=== PATIENT | female | born 1960 | race Caucasian/White ===

== ENCOUNTER 2020-05-17 17:05 | Emergency (ER) | payer OTHER, SELFPAY ==
[2020-05-17 17:20] VITALS: O2SAT 96
[2020-05-17 17:33] VITALS: BP 185/70; PULSE 74; RESP 22; TEMP 37.3; O2SAT 99
[2020-05-17] MEDS: IPRATROPIUM BR 0.02% INH SOLN 0.5 MG/2.5 ML VIAL INHALATION (17:35)
[2020-05-17] MEDS: ALBUTEROL SULFATE NEB 2.5 MG/3 ML INH INHALATION (17:36)
--- NOTE | 2020-05-17 17:41 | ED.GENADULT ---
HPI - General Adult General Chief complaint: Upper Respiratory Infection Stated complaint: Difficulty breathing Time Seen by Provider: 05/17/20 17:26 Source: patient and RN notes reviewed Mode of arrival: ambulatory Limitations: no limitations History of Present Illness HPI narrative: Patient presents today complaining of shortness of breath. 1.5 hours prior to arrival, she was using her shop back at home to vacuum up some dust and dirt. She did not realize the filter was not on her Shop Vac, when she inhaled a bunch of dust. States she is having a spasm in her esophagus, causing her shortness of breath. Something similar happened to her 1 year ago when she was removing some tile from a bathroom, she was subsequently seen at [facility] and given an albuterol nebulizer treatment, helping care her symptoms. She is requesting a treatment today. Prior to the symptoms starting after inhaling the dust, she states she did not have any symptoms at home. States that she was monitoring her pulse ox at home and states it was in the 80s. Upon arrival, after walking in from her car, her pulse ox was in the 80s as well. After sitting and taking some deep breaths, it has risen to 97% on room air. She denies history of COPD or asthma. MD complaint: shortness of breath. Related Data Home Medications Medication Instructions Recorded Confirmed estradiol 0.5 mg PO DAILY 05/17/20 05/17/20 gabapentin 300 mg PO BID 05/17/20 05/17/20 gabapentin 600 mg PO HS 05/17/20 05/17/20 glimepiride 4 mg PO DAILY 05/17/20 05/17/20 ibuprofen 800 mg PO TID 05/17/20 05/17/20 lisinopril 20 mg PO DAILY 05/17/20 05/17/20 metformin 1,000 mg PO BID 05/17/20 05/17/20 Allergies Allergy/AdvReac Type Severity Reaction Status Date / Time ampicillin Allergy Rash Verified 05/17/20 18:02 Review of Systems Review of Systems: Narrative: CONSTITUTIONAL: Denies body aches, fever, chills, or sweats. EYES: Denies visual changes, redness, or discharge. ENT: Denies rhinorrhea, congestion, sore throat, or otalgia. CARDIOVASCULAR: Denies chest pain, palpitations, or edema. RESPIRATORY: Denies cough. +shortness of breath GASTROINTESTINAL: Denies abdominal pain, nausea, vomiting, or diarrhea. GENITOURINARY: Denies dysuria or hematuria. SKIN: Denies rash, itching, or wounds. MUSCULOSKELETAL: Denies back pain, joint pain, or myalgia. NEUROLOGIC: Denies headache, numbness, tingling, or weakness. PSYCH: Denies depression or anxiety. [facility] Past Medical History Medical History (Updated 05/18/20 @ 00:00 by Background Daemon) Diabetes Hypertension Stroke Comments At time of signature, I have reviewed and agree with nursing past medical, surgical, social and family history unless otherwise noted. Please see nursing chart for further information. There is no relevant family history pertinent to the presenting complaint Exam Narrative: Exam Narrative: GENERAL: Chronically ill-appearing, well-nourished. HEAD: Normocephalic, atraumatic. EYES: EOMI. No redness or drainage. Conjunctivae normal. ENT: Mucous membranes pink and moist. Nares clear. No rhinorrhea. TMs normal bilaterally. Throat normal. Uvula midline. NECK: Normal AROM. Supple. No lymphadenopathy. CHEST: Labored breathing. Decreased aeration throughout. No wheezing, rhonchi, rales, or stridor noted. HEART: Regular rate and rhythm. No murmur appreciated. Normal peripheral pulses. MUSCULOSKELETAL: No bony tenderness. EXTREMITIES: Normal range of motion. No edema. SKIN: Warm, dry, no rash. Capillary refill normal. Normal skin turgor. NEURO: No focal deficits. Alert and oriented x3. Gait steady. PSYCH: Normal affect. No signs of depression or anxiety. Course Course Emergency Course: 1809- Patient finished with Duoneb and states she feels much better. Her pulse ox is 98% and she is no longer labored. Her aeration is much improved. 1819- Patient has walked in the hallway with pulse ox showing 95%. Will ord
[2020-05-17 18:02] VITALS: BP 185/70; PULSE 74; RESP 22; TEMP 37.3; O2SAT 99
[2020-05-17 18:13] VITALS: PULSE 79; RESP 22; O2SAT 98
[2020-05-17] MEDS: methylPREDNISolone SOD SUCC 125 MG VIAL IM (18:27)
[2020-05-17 18:45] VITALS: PULSE 87; RESP 20; O2SAT 97
== END 2020-05-17 18:45 | disposition home or self-care (01) ==
PROVIDERS: Emergency Provider Nurse Practitioner
DX: J98.01 Acute bronchospasm (principal); E11.9 Type 2 diabetes mellitus without complications; I10 Essential (primary) hypertension; Z86.73 Personal history of transient ischemic attack (TIA), and cerebral infarction without residual deficits
CPT/HCPCS: 94640; 96372; 99203; G0463; J2930